=== PATIENT | male | born 1975 | race Caucasian/White ===

== ENCOUNTER 2018-07-02 10:24 | Emergency (ER) | payer OTHER ==
[~2018-07-02] VITALS: Ht 167.6 cm; Wt 70.3 kg
--- NOTE | ~2018-07-02 | EKG ---
[address] [address] ELECTROCARDIOGRAM REPORT Name: VISHNU TUCKER Room #: [facility]#: [id number] Admission: 07/02/18 Attend Phys: Discharge: 07/02/18 Date of : 79 Report #: [id number] THIS REPORT FOR: //name// [facility] ED Test Date: 2018-07-02 Test Time: 11:55:28 Pat Name: VISHNU TUCKER Department: Room: Gender: M Manager In Training: MARILU : 1975 Requested By: Geoffrey Cornejo Order Number: [id number] MD: Fernando Palomo Measurements Intervals [place] Rate: 89 P: 24 MN: 152 QRS: 31 QRSD: 98 T: 23 QT: 360 QTc: 439 Interpretive Statements Sinus rhythm Normal tracing Compared to ECG 05/08/2018 13:13:29 No significant change was found Electronically Signed On 07-03-2018 8:04:03 CDT by Fernando Palomo [email or web address] <ELECTRONICALLY SIGNED> By: Fernando Palomo MD, [facility] 07/03/18 0804 D: 10/5 1155 Fernando Palomo MD, FACC /EPI
[~2018-07-02 10:24] MED LIST: LEVSIN0.125 MG PO; XANAX 0.25 MG0.25 MG PO
[2018-07-02 11:06] LABS: ABSOLUTE NEUTROPHILS 4.3 thou/uL (1.4-8.2); BASOPHILS 0.7 % (0.0-2.0); EOSINOPHILS 0.7 % (0.0-3.0); HEMATOCRIT 46.6 % (42.0-52.0); HEMOGLOBIN 16.4 gm/dL (14.0-18.0); LYMPHOCYTES 23.5 % (24.0-44.0); MCH 32.9 pg (26.0-34.0); MCHC 35.2 g/dL (28.0-37.0); MCV 93.2 fL (80.0-100.0); MONOCYTES 5.6 % (1.0-8.0); PLATELET COUNT 244 thou/uL (150-400); POLYS 69.5 % (36.0-66.0); RDW 12.6 % (10.5-14.5); WBC 6.2 thou/uL (4.0-11.0)
[2018-07-02 11:15] LABS: CALCIUM 9.8 mg/dL (8.5-10.1)
[2018-07-02 11:21] LABS: ALBUMIN 4.4 g/dL (3.4-5.0); TOTAL BILIRUBIN 1.7 mg/dL (<0.1-1.0); TOTAL PROTEIN 8.8 g/dL (6.4-8.2)
[2018-07-02 12:21] LABS: URINE BILIRUBIN NEGATIVE (Negative); URINE BLOOD NEGATIVE (Negative); URINE CLARITY CLEAR; URINE COLOR YELLOW; URINE GLUCOSE-RANDOM* NEGATIVE (Negative); URINE KETONES TRACE (Negative); URINE LEUKOCYTES-REFLEX NEGATIVE (Negative); URINE NITRITE-REFLEX NEGATIVE (Negative); URINE PROTEIN (DIPSTICK) TRACE (Negative); URINE UROBILINOGEN 0.2 E.U./dl (0.2-1.0)
[2018-07-02] MEDS ORDERED: ATIVAN1 MG PO (13:38)
[2018-07-02] MEDS ORDERED: LEVSIN0.125 MG PO (13:38)
[2018-07-02] MEDS ORDERED: COLACE100 MG PO (13:39)
[2018-07-02 13:44] VITALS: BP 155/96
== END 2018-07-02 13:54 | disposition home or self-care (01) ==
LOC: ER 10:24
PROVIDERS: Physician Assistant
DX: K59.00 Constipation, unspecified (principal); E86.0 Dehydration; F41.9 Anxiety disorder, unspecified; R00.0 Tachycardia, unspecified; I10 Essential (primary) hypertension; E11.9 Type 2 diabetes mellitus without complications

== ENCOUNTER 2018-08-02 14:54 | Emergency (ER) | payer OTHER ==
[~2018-08-02] VITALS: Ht 177.8 cm; Wt 72.6 kg
[~2018-08-02 14:54] MED LIST changes: +ATIVAN1 MG PO; +COLACE100 MG PO
[2018-08-02 16:13] LABS: BASOPHILS 1.2 % (0.0-2.0); EOSINOPHILS 0.4 % (0.0-3.0); HEMATOCRIT 41.5 % (42.0-52.0); HEMOGLOBIN 14.8 gm/dL (14.0-18.0); LYMPHOCYTES 29.1 % (24.0-44.0); MCH 33.5 pg (26.0-34.0); MCHC 35.6 g/dL (28.0-37.0); MONOCYTES 7.8 % (1.0-8.0); PLATELET COUNT 216 thou/uL (150-400); POLYS 61.5 % (36.0-66.0); RBC 4.42 mil/uL (4.50-6.00); RDW 12.1 % (10.5-14.5); WBC 4.8 thou/uL (4.0-11.0)
[2018-08-02 16:30] LABS: CREATININE 0.9 mg/dL (0.7-1.3); POTASSIUM 3.9 mmol/L (3.5-5.1)
[2018-08-02 16:36] LABS: TOTAL PROTEIN 7.9 g/dL (6.4-8.2)
[2018-08-02 17:06] LABS: URINE BILIRUBIN NEGATIVE (Negative); URINE BLOOD NEGATIVE (Negative); URINE CLARITY CLEAR; URINE COLOR YELLOW; URINE GLUCOSE-RANDOM* NEGATIVE (Negative); URINE KETONES TRACE (Negative); URINE LEUKOCYTES-REFLEX TRACE (Negative); URINE NITRITE-REFLEX NEGATIVE (Negative); URINE PROTEIN (DIPSTICK) NEGATIVE (Negative); URINE SPECIFIC GRAVITY 1.015 (1.005-1.035); URINE UROBILINOGEN 0.2 E.U./dl (0.2-1.0)
[2018-08-02] MEDS ORDERED: CITRATE OF MAG296 M1 PO (17:48)
[2018-08-02] MEDS ORDERED: BENTYL 20 MG TA20 M1 PO (17:48)
[2018-08-02 18:20] VITALS: BP 128/72
== END 2018-08-02 18:10 | disposition home or self-care (01) ==
LOC: ER 14:54
PROVIDERS: Emergency Medicine
DX: K59.00 Constipation, unspecified (principal); K58.9 Irritable bowel syndrome, unspecified; F41.9 Anxiety disorder, unspecified; I10 Essential (primary) hypertension; E11.9 Type 2 diabetes mellitus without complications

== ENCOUNTER 2018-10-13 13:51 | Emergency (ER) | payer OTHER ==
[~2018-10-13] VITALS: Ht 167.6 cm; Wt 70.3 kg
[~2018-10-13 13:51] MED LIST changes: +BENTYL 20 MG TA20 M1 PO; +CITRATE OF MAG296 M1 PO
[2018-10-13 15:25] VITALS: BP 135/105
== END 2018-10-13 15:26 | disposition home or self-care (01) ==
LOC: ER 13:51
DX: F41.9 Anxiety disorder, unspecified (principal); I10 Essential (primary) hypertension; E11.9 Type 2 diabetes mellitus without complications; Z87.891 Personal history of nicotine dependence

== ENCOUNTER 2019-01-06 14:37 | Emergency (ER) | payer OTHER ==
[~2019-01-06] VITALS: Ht 167.6 cm; Wt 70.3 kg
[2019-01-06 15:26] LABS: ABSOLUTE NEUTROPHILS 4.2 thou/uL (1.4-8.2); BASOPHILS 0.7 % (0.0-2.0); EOSINOPHILS 0.2 % (0.0-3.0); HEMATOCRIT 42.8 % (42.0-52.0); HEMOGLOBIN 14.8 gm/dL (14.0-18.0); MCH 32.4 pg (26.0-34.0); MCHC 34.6 g/dL (28.0-37.0); MCV 93.7 fL (80.0-100.0); PLATELET COUNT 197 thou/uL (150-400); POLYS 74.1 % (36.0-66.0); RBC 4.57 mil/uL (4.50-6.00); RDW 12.6 % (10.5-14.5); WBC 5.6 thou/uL (4.0-11.0)
[2019-01-06 15:31] LABS: ANION GAP 14 mmol/L (7-16); BUN 10 mg/dL (7-18); CHLORIDE 97 mmol/L (98-107); CO2 24 mmol/L (21-32); GLUCOSE 91 mg/dL (74-106); POTASSIUM 3.7 mmol/L (3.5-5.1); SODIUM 135 mmol/L (136-145)
[2019-01-06 15:41] LABS: SGOT 33 U/L (15-37); SGPT 26 U/L (30-65); TOTAL BILIRUBIN 1.2 mg/dL (<0.1-1.0); TOTAL PROTEIN 7.9 g/dL (6.4-8.2); TROPONIN-I <0.06 ng/mL (<0.06)
[2019-01-06] MEDS ORDERED: IBUPROFEN 600600 M1 PO (17:48)
[2019-01-06] MEDS ORDERED: ATIVAN0.5 MG PO (17:48)
[2019-01-06 18:19] VITALS: BP 141/91
--- NOTE | 2019-01-07 07:58 | EKG ---
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: : 1975 Requested By: Cindy Barros Order Number: [id number] MD: Fernando Palomo Measurements Intervals [place] Rate: 90 P: 33 [place]: 132 QRS: 56 QRSD: 99 T: 44 QT: 363 QTc: 444 Interpretive Statements Sinus rhythm Normal tracing Compared to ECG 07/02/2018 11:55:28 No significant changes Electronically Signed On 01-07-2019 7:58:07 CDT by Fernando Palomo [email or web address] ��������������������������������������������� <ELECTRONICALLY SIGNED> ���������������������������������������� By: Fernando Palomo MD, [facility] ��������������������������������������������� 01/07/19 0758 1501 1501 Fernando Palomo MD, FACC /EPI
== END 2019-01-06 18:19 | disposition home or self-care (01) ==
LOC: ER 14:37
PROVIDERS: Emergency Medicine
DX: R07.89 Other chest pain (principal); E86.0 Dehydration; F41.9 Anxiety disorder, unspecified; E11.9 Type 2 diabetes mellitus without complications; I10 Essential (primary) hypertension; Z87.891 Personal history of nicotine dependence

== ENCOUNTER 2019-05-12 10:35 | Emergency (ER) | payer OTHER ==
[~2019-05-12] VITALS: Ht 167.6 cm; Wt 70.3 kg
[~2019-05-12 10:35] MED LIST changes: +ATIVAN0.5 MG PO; +IBUPROFEN 600600 M1 PO
[2019-05-12 11:03] LABS: URINE BILIRUBIN NEGATIVE (Negative); URINE BLOOD NEGATIVE (Negative); URINE CLARITY CLEAR; URINE COLOR YELLOW; URINE GLUCOSE-RANDOM* NEGATIVE (Negative); URINE KETONES NEGATIVE (Negative); URINE LEUKOCYTES-REFLEX NEGATIVE (Negative); URINE NITRITE-REFLEX NEGATIVE (Negative); URINE PROTEIN (DIPSTICK) TRACE (Negative); URINE SPECIFIC GRAVITY 1.025 (1.005-1.035); URINE UROBILINOGEN 0.2 E.U./dl (0.2-1.0)
[2019-05-12 11:21] LABS: ABSOLUTE NEUTROPHILS 3.6 thou/uL (1.4-8.2); BASOPHILS 1.2 % (0.0-2.0); EOSINOPHILS 0.2 % (0.0-3.0); HEMATOCRIT 41.5 % (42.0-52.0); HEMOGLOBIN 14.3 gm/dL (14.0-18.0); LYMPHOCYTES 21.1 % (24.0-44.0); MCH 32.2 pg (26.0-34.0); MCHC 34.5 g/dL (28.0-37.0); MCV 93.6 fL (80.0-100.0); MONOCYTES 7.6 % (1.0-8.0); PLATELET COUNT 216 thou/uL (150-400); POLYS 69.9 % (36.0-66.0); RBC 4.43 mil/uL (4.50-6.00); RDW 12.1 % (10.5-14.5); WBC 5.2 thou/uL (4.0-11.0)
[2019-05-12 11:29] LABS: CALCIUM 8.8 mg/dL (8.5-10.1); POTASSIUM 3.9 mmol/L (3.5-5.1)
[2019-05-12 11:34] LABS: ALBUMIN 3.8 g/dL (3.4-5.0); MAGNESIUM 1.6 mg/dL (1.8-2.4); TOTAL BILIRUBIN 0.6 mg/dL (<0.1-1.0); TOTAL PROTEIN 7.8 g/dL (6.4-8.2)
[2019-05-12 13:37] VITALS: BP 142/84
--- NOTE | 2019-05-13 09:12 | EKG ---
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
== END 2019-05-12 13:39 | disposition home or self-care (01) ==
LOC: ER 10:35
PROVIDERS: Physician Assistant
DX: E86.0 Dehydration (principal); F41.9 Anxiety disorder, unspecified; E11.9 Type 2 diabetes mellitus without complications; I10 Essential (primary) hypertension; Z87.891 Personal history of nicotine dependence

== ENCOUNTER 2019-08-09 08:43 | Emergency (ER) | payer OTHER ==
[~2019-08-09] VITALS: Ht 167.6 cm; Wt 70.3 kg
[2019-08-09 09:11] LABS: ABSOLUTE NEUTROPHILS 3.9 thou/uL (1.4-8.2); BASOPHILS 0.9 % (0.0-2.0); EOSINOPHILS 0.1 % (0.0-3.0); HEMATOCRIT 44.2 % (42.0-52.0); HEMOGLOBIN 14.7 gm/dL (14.0-18.0); LYMPHOCYTES 23.9 % (24.0-44.0); MCH 31.4 pg (26.0-34.0); MCHC 33.2 g/dL (28.0-37.0); MCV 94.6 fL (80.0-100.0); MONOCYTES 7.5 % (1.0-8.0); PLATELET COUNT 230 thou/uL (150-400); POLYS 67.6 % (36.0-66.0); RBC 4.67 mil/uL (4.50-6.00); RDW 12.4 % (10.5-14.5); WBC 5.7 thou/uL (4.0-11.0)
[2019-08-09 09:25] LABS: CALCIUM 10.2 mg/dL (8.5-10.1); CREATININE 0.9 mg/dL (0.7-1.3); POTASSIUM 3.6 mmol/L (3.5-5.1)
[2019-08-09 09:32] LABS: ALBUMIN 4.3 g/dL (3.4-5.0); TOTAL BILIRUBIN 0.9 mg/dL (<0.1-1.0); TOTAL PROTEIN 8.3 g/dL (6.4-8.2)
[2019-08-09 10:04] LABS: URINE BILIRUBIN NEGATIVE (Negative); URINE BLOOD NEGATIVE (Negative); URINE CLARITY CLEAR; URINE COLOR YELLOW; URINE GLUCOSE-RANDOM* NEGATIVE (Negative); URINE KETONES NEGATIVE (Negative); URINE LEUKOCYTES-REFLEX NEGATIVE (Negative); URINE NITRITE-REFLEX NEGATIVE (Negative); URINE PROTEIN (DIPSTICK) TRACE (Negative); URINE SPECIFIC GRAVITY 1.015 (1.005-1.035)
[2019-08-09 12:06] VITALS: BP 135/80
--- NOTE | 2019-08-09 21:47 | EKG ---
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: JIGNA : 1975 Requested By: Farzaneh Meneses Order Number: [id number] MD: Fernando Palomo Measurements Intervals [place] Rate: 97 P: 37 MO: 164 QRS: 43 QRSD: 99 T: 31 QT: 351 QTc: 446 Interpretive Statements Sinus rhythm Normal tracing Compared to ECG 05/12/2019 10:51:45 No significant changes Electronically Signed On 08-09-2019 21:47:25 FIELD TALENT QUALIFICATION SPECIALIST by Fernando Palomo [email or web address] <ELECTRONICALLY SIGNED> By: Fernando Palomo MD, [facility] 08/09/19 2147 0 0 Fernando Palomo MD, FACC /EPI
== END 2019-08-09 12:06 | disposition home or self-care (01) ==
LOC: ER 08:43
PROVIDERS: Emergency Medicine
DX: R42 Dizziness and giddiness (principal); F41.9 Anxiety disorder, unspecified; R20.2 Paresthesia of skin; E11.9 Type 2 diabetes mellitus without complications; I10 Essential (primary) hypertension; Z87.891 Personal history of nicotine dependence

== ENCOUNTER 2019-09-09 11:09 | Emergency (ER) | payer OTHER ==
[~2019-09-09] VITALS: Ht 167.6 cm; Wt 70.3 kg
[2019-09-09 11:32] LABS: URINE BILIRUBIN NEGATIVE (Negative); URINE BLOOD NEGATIVE (Negative); URINE CLARITY CLEAR; URINE COLOR YELLOW; URINE GLUCOSE-RANDOM* NEGATIVE (Negative); URINE KETONES NEGATIVE (Negative); URINE LEUKOCYTES-REFLEX NEGATIVE (Negative); URINE NITRITE-REFLEX NEGATIVE (Negative); URINE PROTEIN (DIPSTICK) TRACE (Negative); URINE SPECIFIC GRAVITY >= 1.030 (1.005-1.035); URINE UROBILINOGEN 0.2 E.U./dl (0.2-1.0)
[2019-09-09 14:17] LABS: ABSOLUTE NEUTROPHILS 4.2 thou/uL (1.4-8.2); BASOPHILS 1.1 % (0.0-2.0); EOSINOPHILS 0.1 % (0.0-3.0); HEMATOCRIT 45.5 % (42.0-52.0); HEMOGLOBIN 15.4 gm/dL (14.0-18.0); LYMPHOCYTES 21.5 % (24.0-44.0); MCH 31.7 pg (26.0-34.0); MCHC 33.9 g/dL (28.0-37.0); MCV 93.5 fL (80.0-100.0); MONOCYTES 6.9 % (1.0-8.0); PLATELET COUNT 201 thou/uL (150-400); POLYS 70.4 % (36.0-66.0); RBC 4.86 mil/uL (4.50-6.00)
[2019-09-09 14:25] LABS: ANION GAP 11 mmol/L (7-16); BUN 11 mg/dL (7-18); CALCIUM 9.6 mg/dL (8.5-10.1); CHLORIDE 96 mmol/L (98-107); CO2 28 mmol/L (21-32); GLUCOSE 100 mg/dL (74-106); POTASSIUM 3.8 mmol/L (3.5-5.1); SODIUM 135 mmol/L (136-145)
[2019-09-09 14:35] LABS: ALBUMIN 4.2 g/dL (3.4-5.0); LIPASE 175 U/L (73-393); SGOT 26 U/L (15-37); SGPT 26 U/L (30-65); TOTAL PROTEIN 8.4 g/dL (6.4-8.2); TROPONIN-I <0.06 ng/mL (<0.06)
[2019-09-09] MEDS ORDERED: CARAFATE 1 GM TA1 G1 PO (15:53)
[2019-09-09] MEDS ORDERED: OMEPRAZOLE40 MG PO (15:53)
[2019-09-09 16:26] VITALS: BP 140/80
--- NOTE | 2019-09-10 10:51 | EKG ---
[place] [address] [facility] [place] [address] ELECTROCARDIOGRAM REPORT Name: VISHNU TUCKER Room #: [facility]#: [id number] Admission: 09/09/19 Attend Phys: Discharge: 09/09/19 Date of : [birth year] Report #: [id number] THIS REPORT FOR: //name// [facility] ED Test Date: 2019-09-09 Test Time: 14:13:20 Pat Name: VISHNU TUCKER Department: Room: Gender: Drawbridge Operator: SHAYLA : 1975 Requested By: Franco Hyde Order Number: [id number] MD: Jimbo Parnell Measurements Intervals [place] Rate: 85 P: 55 ND: 164 QRS: 53 QRSD: 107 T: 39 QT: 392 QTc: 467 Interpretive Statements Sinus rhythm Probable left atrial enlargement Nonspecific ST segment abnormalities Compared to ECG 08/09/2019 09:01:02 No significant change Electronically Signed On 09-10-2019 10:50:26 PROGRESSIVE DIE MAKER by Jimbo Parnell [email or web address] <ELECTRONICALLY SIGNED> By: Jimbo Parnell MD 09/10/19 1050 1413 1413 MD IZZY Milton
== END 2019-09-09 16:35 | disposition home or self-care (01) ==
LOC: ER 11:09
PROVIDERS: Emergency Medicine
DX: K29.70 Gastritis, unspecified, without bleeding (principal); I10 Essential (primary) hypertension; E11.9 Type 2 diabetes mellitus without complications; F41.9 Anxiety disorder, unspecified; Z87.891 Personal history of nicotine dependence

== ENCOUNTER 2019-10-19 16:22 | Emergency (ER) | payer OTHER ==
[~2019-10-19] VITALS: Ht 167.6 cm; Wt 70.3 kg
[~2019-10-19 16:22] MED LIST changes: +CARAFATE 1 GM TA1 G1 PO; +OMEPRAZOLE40 MG PO
[2019-10-19 17:28] LABS: ABSOLUTE NEUTROPHILS 3.2 thou/uL (1.4-8.2); BASOPHILS 1.1 % (0.0-2.0); EOSINOPHILS 0.4 % (0.0-3.0); HEMOGLOBIN 14.2 gm/dL (14.0-18.0); LYMPHOCYTES 29.6 % (24.0-44.0); MCH 31.6 pg (26.0-34.0); MCHC 33.8 g/dL (28.0-37.0); MCV 93.3 fL (80.0-100.0); MONOCYTES 7.7 % (1.0-8.0); PLATELET COUNT 210 thou/uL (150-400); POLYS 61.2 % (36.0-66.0); RDW 12.2 % (10.5-14.5); WBC 5.2 thou/uL (4.0-11.0)
[2019-10-19 17:34] LABS: CALCIUM 8.6 mg/dL (8.5-10.1); POTASSIUM 3.6 mmol/L (3.5-5.1)
[2019-10-19 17:40] LABS: TOTAL BILIRUBIN 0.7 mg/dL (<0.1-1.0); TOTAL PROTEIN 8.1 g/dL (6.4-8.2)
[2019-10-19 19:36] VITALS: BP 147/94
== END 2019-10-19 19:36 | disposition home or self-care (01) ==
LOC: ER 16:22
PROVIDERS: Emergency Medicine
DX: R10.9 Unspecified abdominal pain (principal); I10 Essential (primary) hypertension; E11.9 Type 2 diabetes mellitus without complications; K58.9 Irritable bowel syndrome, unspecified; F41.9 Anxiety disorder, unspecified; Z87.891 Personal history of nicotine dependence

== ENCOUNTER 2021-06-21 20:25 | Inpatient (IN) | payer OTHER ==
[~2021-06-21] VITALS: Ht 154.9 cm; Wt 68.7 kg
[2021-06-21 20:58] VITALS: BP 141/101
[2021-06-21 22:59] LABS: ABSOLUTE NEUTROPHILS 4.6 thou/uL (1.4-8.2); BASOPHILS 0.7 % (0.0-2.0); EOSINOPHILS 0.4 % (0.0-3.0); HEMATOCRIT 43.8 % (42.0-52.0); HEMOGLOBIN 14.9 gm/dL (14.0-18.0); MCH 32.3 pg (26.0-34.0); MONOCYTES 7.3 % (1.0-8.0); PLATELET COUNT 226 thou/uL (150-400); POLYS 67.6 % (36.0-66.0); RBC 4.62 mil/uL (4.50-6.00); RDW 12.8 % (10.5-14.5); WBC 6.8 thou/uL (4.0-11.0)
[2021-06-21 23:13] LABS: URINE BILIRUBIN NEGATIVE (Negative); URINE BLOOD NEGATIVE (Negative); URINE CLARITY CLEAR; URINE COLOR YELLOW; URINE GLUCOSE-RANDOM* NEGATIVE (Negative); URINE KETONES NEGATIVE (Negative); URINE LEUKOCYTES-REFLEX NEGATIVE (Negative); URINE NITRITE-REFLEX NEGATIVE (Negative); URINE PROTEIN (DIPSTICK) NEGATIVE (Negative); URINE SPECIFIC GRAVITY 1.025 (1.005-1.035); URINE UROBILINOGEN 0.2 E.U./dl (0.2-1.0)
[2021-06-21 23:14] LABS: ALBUMIN 4.1 g/dL (3.4-5.0); CALCIUM 8.5 mg/dL (8.5-10.1); DIRECT BILIRUBIN 0.4 mg/dL (<0.1-0.2)
[2021-06-21 23:21] LABS: POTASSIUM 2.8 mmol/L (3.5-5.1)
--- NOTE | 2021-06-22 06:50 | EKG ---
[address] [address] ELECTROCARDIOGRAM REPORT Name: JOSE TUCKERJOCELYN España Room #: 170-9 ADM IN ..#: [id number] Admission: 06/22/21 Attend Phys: Nikos Simmons Discharge: Date of : 79 Report #: [id number] [facility] ED Test Date: 2021-06-21 Test Time: 22:38:12 Pat Name: VISHNU TUCKER Department: Room: 170 Gender: M Quality Review Specialist: rose : 1975 Requested By: Eduardo Taylor Order Number: [id number] MD: Damian Jarrett Measurements Intervals [place] Rate: 77 P: 25 NH: 158 QRS: 26 QRSD: 95 T: 38 QT: 384 QTc: 435 Interpretive Statements Sinus rhythm Probable left atrial enlargement Compared to ECG 09/09/2019 14:13:20 No significant changes Electronically Signed On 06-22-2021 6:50:40 CDT by Damian Jarrett [email or web address] <ELECTRONICALLY SIGNED> By: Damian Jarrett MD, [facility] 06/22/21 0650 2237 37 Damian Jarrett MD, FACC /EPI
[2021-06-22 06:53] VITALS: BP 141/100
[2021-06-22 08:18] VITALS: BP 144/87
[2021-06-22 12:43] LABS: PROTIME 10.9 Seconds (10.5-12.1)
--- NOTE | 2021-06-22 12:43 | NUR ---
PT IS A NEW ADMIT FROM ED TO ROOM 450. PT IS A&O X4. PT IS NSR ON THE TELE. PT HAS DIARRHEA NOTED. PT RECEIVED MEDICATIONS ORDERED. PT IS FALL RISK BUT REFUSES BED ALARM. PT IS ABLE TO MAKE NEEDS KNOWN. PT IS ROOM AIR. PT VS STABLE.
[2021-06-22 16:41] VITALS: BP 149/98
[2021-06-22 20:52] VITALS: BP 150/94
[2021-06-23] VITALS (8 sets, daily range): BP systolic 133–150; BP diastolic 70–94
[2021-06-23 01:06] LABS: GLYCOHEMOGLOBIN (HGB A1C) 5.4 % (4.8-5.6)
--- NOTE | 2021-06-23 05:39 | NUR ---
Pt. rested at short intervals during the night when checked on during frequent rounds. He c/o abdominal pain and pain meds given (see emar) with some relief noted. Bowel prep started last evening and he has been having frequent clear stools.
[2021-06-23 05:45] LABS: HEMATOCRIT 35.7 % (42.0-52.0); MCH 33.2 pg (26.0-34.0); MCHC 34.7 g/dL (28.0-37.0); MCV 95.6 fL (80.0-100.0); RBC 3.73 mil/uL (4.50-6.00); RDW 12.8 % (10.5-14.5); WBC 3.8 thou/uL (4.0-11.0)
[2021-06-23 06:18] LABS: HEMOGLOBIN 12.4 gm/dL (14.0-18.0)
[2021-06-23 06:40] LABS: CALCIUM 7.7 mg/dL (8.5-10.1); CREATININE 0.8 mg/dL (0.7-1.3); MAGNESIUM 2.1 mg/dL (1.8-2.4); POTASSIUM 3.4 mmol/L (3.5-5.1)
--- NOTE | 2021-06-23 11:59 | NUR ---
PT ADMITTED RELATED TO COLITIS. CM REVIEWED CHART AND SPOKE WITH CARE TEAM. CM MET WITH PT AT BEDSIDE THIS DAY. PT APPEARED TO BE A&O X4. CM ROLE INTRODUCED. PT INDICATED HE LIVES IN AN APARTMENT MOSTLY ALONE WIHT A FULL FLIGHT OF STEPS TO ENTER AND NO STEPS INSIDE. HE INDICATED THAT HIS 19 YR OLD DTR STAYS WITH HIM SOMETIMES. 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 PT INDICATED HE HAD LOST HIS JOB AND IS CURRENTLY WITHOUT INSURANCE AND PATIENT PAY. PT INDICATED NO PCP BUT THAT HE FOLLOWS AT A CLINIC IN [place] FOR CARES. PT TO HAVE EGD/COLONOSCOPY THIS DAY. PT INDICATED HE PLANS TO RETURN HOME ONCE MEDICALLY STABLE. PT MAY NEED ASSISTANCE WITH SCRIPTS UPON DC. CM FOLLOWING.
[2021-06-23 12:07] LABS: HAV IgM AB (ANTI-HAV IgM) Negative (Negative); HEPATITIS B SURFACE AG Negative (Negative); HEPATITIS C VIRUS AB <0.1 (0.0-0.9)
[2021-06-23 13:25] LABS: ALBUMIN 3.3 g/dL (3.4-5.0); DIRECT BILIRUBIN 0.4 mg/dL (<0.1-0.2); TOTAL BILIRUBIN 2.3 mg/dL (0.2-1.0); TOTAL PROTEIN 6.5 g/dL (6.4-8.2)
[2021-06-23] MEDS ORDERED: HYOSCYAMINE0.125 M1 PO (16:04)
[2021-06-23] MEDS ORDERED: CARAFATE 11 GM/10 M1 PO (16:04)
[2021-06-23] MEDS ORDERED: PROTONIX 20 MG20 M1 PO (16:04)
--- NOTE | 2021-06-23 17:52 | NUR ---
Assumed pt care this am, vs stable. Pt went down for a procedure and came back in the pm. Pain is managed with medications partial relief is noted. DC orders and instructiosn given to the pt, prescriptions filled by case management and vouched for the pt. IV removed. POC followed, pt is now dc.
--- NOTE | 2021-06-24 17:34 | P ---
[facility] [place] [address] PROCEDURE REPORT Name: VISHNU TUCKER Room #: 450-P [facility] IN M.R.#: [id number] Admission: 06/22/21 Attend Phys: Daryn Sood MD Discharge: 06/23/21 Date of : 79 Report #: [id number] THIS REPORT FOR: cc: FAM - No family physician/PCP FAM - No family physician/PCP Jason Conrad MD ~ cc: Daryn Sood MD DATE OF SERVICE: 06/23/2021 PROCEDURE PERFORMED: Colonoscopy with biopsies. HISTORY OF PRESENT ILLNESS: The patient is a 46-year-old male with right lower and right upper quadrant abdominal pain, previous history of cholecystectomy. He has been having diarrhea with blood in the stools at times. A CT scan of the abdomen and pelvis showing possible wall thickening in the cecum and ascending colon. The patient had a colonoscopy, which was normal in 2018. DESCRIPTION OF PROCEDURE: The risks and benefits of the procedure were explained to the patient, those risks including but not limited to bleeding, perforation and the risk of sedation. He understood these risks and gave informed consent. Sedation was given using propofol per Anesthesia. Next, using a standard Olympus colonoscope, the scope was placed in the patient's anus and advanced under direct vision to the cecum. The overall prep was excellent. The cecum and ileocecal valve were normal in appearance. Terminal ileum was intubated and normal in appearance. Ascending, transverse, descending and sigmoid colon were all normal with no evidence of colitis or inflammation was noted. Random biopsies were obtained today to rule out the possibility of microscopic colitis. The rectal mucosa was normal. On retroflexion, small nonbleeding internal hemorrhoids were noted. Also, small external hemorrhoids, nonbleeding were noted. The scope was then withdrawn and the procedure terminated. The patient tolerated the procedure well. IMPRESSION: 1. Internal and external hemorrhoids, likely source of bright red blood per rectum. No evidence of bleeding at this time. 2. Otherwise, normal colonoscopy. No evidence of colitis or inflammation. RECOMMENDATIONS: 1. Await biopsy results. 2. We will start Levsin. [address] [address] PROCEDURE REPORT Name: VISHNU TUCKER Taco Room #: 450-P [facility] IN ..#: [id number] Admission: 06/22/21 Attend Phys: Daryn Sood MD Discharge: 06/23/21 Date of : 79 Report #: [id number] Thank you for allowing me to participate in his care. <ELECTRONICALLY SIGNED> By: Jason Conrad MD 06/24/21 1734 1340 1349 Jason Conrad MD /nt
--- NOTE | 2021-06-24 17:34 | P ---
[facility] [place] [address] PROCEDURE REPORT Name: VISHNU TUCKER Room #: 450-P [facility] IN M.R.#: [id number] Admission: 06/22/21 Attend Phys: Daryn Sood MD Discharge: 06/23/21 Date of : 79 Report #: [id number] THIS REPORT FOR: cc: JOSE EDUARDO - No family physician/PCP FAM - No family physician/PCP Jason Conrad MD ~ cc: Daryn Sood MD DATE OF SERVICE: 06/23/2021 PROCEDURE PERFORMED: Upper endoscopy with biopsies. HISTORY OF PRESENT ILLNESS: The patient is a 46-year-old male with abdominal pain, it is right upper quadrant, right lower quadrant and periumbilical, worse after eating. He has had his gallbladder removed approximately a year ago. He also complains of diarrhea, blood in the stool. Last endoscopy was in 2018, with esophagitis. The patient is not on PPI therapy. The patient had a CT scan of the abdomen and pelvis on 06/21/2021, which showed mild bowel wall thickening of the cecum and ascending colon without surrounding fat stranding, may be related to peristalsis. Plan is for upper endoscopy. DESCRIPTION OF PROCEDURE: The risks and benefits of the procedure were explained to the patient, those risks including but not limited to bleeding, perforation and the risk of sedation. He understood these risks and gave informed consent. Sedation was given using propofol per Anesthesia. Next, using a standard Olympus upper endoscope, the scope was placed in the patient's mouth and advanced under direct vision through the esophagus, stomach and into the second portion of the duodenum. The larynx was normal in appearance. The upper and mid esophagus was normal. In the distal esophagus, severe grade D erosive esophagitis was noted. No evidence of bleeding. Upon entering the stomach, a small hiatal hernia was noted. Overall, the gastric mucosa was normal. Biopsies were obtained to rule out H. pylori. The pylorus was normal and patent. The duodenal bulb, first and second portion were normal. Biopsies were also obtained to rule out the possibility of celiac sprue. The scope was then withdrawn and the procedure terminated. The patient tolerated the procedure well. IMPRESSION: 1. Severe grade D erosive esophagitis. 2. Small hiatal hernia. 3. Otherwise, normal upper endoscopy. RECOMMENDATIONS: 1. Recommend b.i.d. PPI therapy and liquid Carafate for the next 2 weeks and then long-term PPI therapy thereafter. 2. Await biopsy results. [address] [address] PROCEDURE REPORT Name: VISHNU TUCKER Taco Room #: 450-P [facility] IN M.R.#: [id number] Admission: 06/22/21 Attend Phys: Daryn Sood MD Discharge: 06/23/21 Date of : 79 Report #: [id number] 3. We will proceed with colonoscopy next today. Thank you for allowing me to participate in his care. <ELECTRONICALLY SIGNED> By: Jason Conrad MD 06/24/21 1734 1311 1346 Jason Conrad MD /nt
== END 2021-06-23 17:55 | disposition home or self-care (01) | DRG 392 ==
LOC: ER 20:25 → 4W 06-22 01:42 → EROBS 06-22 01:42 → 4W 06-22 07:36
PROVIDERS: Nurse Practitioner; Nurse Practitioner Family; ADMIT Hospitalist; ATTEND Hospitalist
PROC: 0DBP8ZX Excision of Rectum, Via Natural or Artificial Opening Endoscopic, Diagnostic (ICD-10-PCS; principal; 2021-06-23)
PROC: 0DB68ZX Excision of Stomach, Via Natural or Artificial Opening Endoscopic, Diagnostic (ICD-10-PCS; principal; 2021-06-23)
DX: K52.9 Noninfective gastroenteritis and colitis, unspecified (principal); K20.90 Esophagitis, unspecified without bleeding; Z20.822 Contact with and (suspected) exposure to COVID-19; Z88.8 Allergy status to other drugs, medicaments and biological substances; K46.9 Unspecified abdominal hernia without obstruction or gangrene; E11.9 Type 2 diabetes mellitus without complications; Z90.49 Acquired absence of other specified parts of digestive tract; F41.9 Anxiety disorder, unspecified; K21.9 Gastro-esophageal reflux disease without esophagitis; Z79.899 Other long term (current) drug therapy
CPT/HCPCS: 10045; 62110; 62900; 70005

== ENCOUNTER 2021-06-26 18:49 | Emergency (ER) | payer OTHER ==
[~2021-06-26] VITALS: Ht 167.6 cm; Wt 70.3 kg
[~2021-06-26 18:49] MED LIST changes: +CARAFATE 11 GM/10 M1 PO; +HYOSCYAMINE0.125 M1 PO; +PROTONIX 20 MG20 M1 PO
[2021-06-26 20:07] LABS: ABSOLUTE NEUTROPHILS 3.6 thou/uL (1.4-8.2); BASOPHILS 0.7 % (0.0-2.0); EOSINOPHILS 0.5 % (0.0-3.0); HEMATOCRIT 38.9 % (42.0-52.0); HEMOGLOBIN 13.2 gm/dL (14.0-18.0); LYMPHOCYTES 23.8 % (24.0-44.0); MCH 32.5 pg (26.0-34.0); MCV 95.6 fL (80.0-100.0); MONOCYTES 7.2 % (1.0-8.0); PLATELET COUNT 216 thou/uL (150-400); POLYS 67.8 % (36.0-66.0); RBC 4.07 mil/uL (4.50-6.00); WBC 5.3 thou/uL (4.0-11.0)
[2021-06-26 20:16] LABS: CALCIUM 8.6 mg/dL (8.5-10.1); POTASSIUM 3.8 mmol/L (3.5-5.1)
[2021-06-26 20:22] LABS: ALBUMIN 3.8 g/dL (3.4-5.0); TOTAL BILIRUBIN 0.9 mg/dL (0.2-1.0); TOTAL PROTEIN 7.2 g/dL (6.4-8.2)
[2021-06-26] MEDS ORDERED: APAP W/CODEINE1 TA2 PO (21:52)
[2021-06-26 22:06] VITALS: BP 147/87
== END 2021-06-26 22:08 | disposition home or self-care (01) ==
LOC: ER 18:49
PROVIDERS: Emergency Medicine
DX: K52.9 Noninfective gastroenteritis and colitis, unspecified (principal); E11.9 Type 2 diabetes mellitus without complications; I10 Essential (primary) hypertension; F41.9 Anxiety disorder, unspecified; Z90.49 Acquired absence of other specified parts of digestive tract; Z87.891 Personal history of nicotine dependence; Z88.5 Allergy status to narcotic agent

== ENCOUNTER 2021-07-04 12:26 | Emergency (ER) | payer OTHER ==
[~2021-07-04] VITALS: Ht 167.6 cm; Wt 70.3 kg
[~2021-07-04 12:26] MED LIST changes: +APAP W/CODEINE1 TA2 PO
[2021-07-04 13:41] LABS: ABSOLUTE NEUTROPHILS 2.6 thou/uL (1.4-8.2); ALBUMIN 3.5 g/dL (3.4-5.0); BASOPHILS 0.8 % (0.0-2.0); CALCIUM 8.2 mg/dL (8.5-10.1); CREATININE 0.8 mg/dL (0.7-1.3); DIRECT BILIRUBIN 0.2 mg/dL (<0.1-0.2); EOSINOPHILS 0.8 % (0.0-3.0); HEMATOCRIT 37.1 % (42.0-52.0); HEMOGLOBIN 12.7 gm/dL (14.0-18.0); LYMPHOCYTES 22.7 % (24.0-44.0); MCH 32.9 pg (26.0-34.0); MCHC 34.4 g/dL (28.0-37.0); MCV 95.8 fL (80.0-100.0); MONOCYTES 7.9 % (1.0-8.0); PLATELET COUNT 244 thou/uL (150-400); POLYS 67.8 % (36.0-66.0); RBC 3.87 mil/uL (4.50-6.00); RDW 13.2 % (10.5-14.5); TOTAL BILIRUBIN 0.7 mg/dL (0.2-1.0); TOTAL PROTEIN 6.9 g/dL (6.4-8.2); WBC 3.8 thou/uL (4.0-11.0)
[2021-07-04 13:43] LABS: POTASSIUM 2.7 mmol/L (3.5-5.1)
[2021-07-04 14:33] VITALS: BP 149/92
--- NOTE | 2021-07-04 15:14 | EKG ---
[address] [address] ELECTROCARDIOGRAM REPORT Name: VISHNU TUCKER Room #: [facility]#: [id number] Admission: 07/04/21 Attend Phys: Discharge: 07/04/21 Date of : 79 Report #: [id number] [facility] ED Test Date: 2021-07-04 Test Time: 14:19:33 Pat Name: VISHNU TUCKER Department: Room: Gender: Metal Numerical Control Programmer: BALDO : 1975 Requested By: Kolton Butts Order Number: [id number] MD: Damian Jarrett Measurements Intervals [place] Rate: 67 P: 28 MS: 157 QRS: 17 QRSD: 98 T: 18 QT: 418 QTc: 442 Interpretive Statements Sinus rhythm Compared to ECG 06/21/2021 22:38:12 No significant changes Electronically Signed On 07-04-2021 15:14:49 CDT by Damian Jarrett [email or web address] <ELECTRONICALLY SIGNED> By: Damian Jarrett MD, [facility] 07/04/21 1514 1419 1419 Damian Jarrett MD, FACC /EPI
== END 2021-07-04 12:44 | disposition home or self-care (01) ==
LOC: ER 12:26
PROVIDERS: Student in an Organized Health Care Education/Training Program
DX: R10.13 Epigastric pain (principal); I10 Essential (primary) hypertension; E11.9 Type 2 diabetes mellitus without complications; F41.9 Anxiety disorder, unspecified; Z90.49 Acquired absence of other specified parts of digestive tract; Z79.891 Long term (current) use of opiate analgesic; Z79.899 Other long term (current) drug therapy; Z88.5 Allergy status to narcotic agent; Z87.891 Personal history of nicotine dependence